=== PATIENT | female | born 1965 | race American Indian/Alaskan Native ===

== ENCOUNTER 2018-04-30 16:08 | Emergency (ER) | payer OTHER ==
[2018-04-30 16:09] VITALS: BMI 17.6
[2018-04-30 16:23] VITALS: TEMP 98.2
[2018-04-30] MEDS ORDERED: Oxycodone/Acetaminophen 5/325 mg Tab PO STA (17:10)
--- NOTE | 2018-04-30 17:21 | ED PDOC ---
Arrival/HPI - General Chief Complaint: Abnormal Skin Integrity Time Seen by Provider: 04/30/18 16:33 Historian: Patient - History of Present Illness Narrative History of Present Illness (Text): 04/30/18 17:10 53yo female with no pmhx who present with complaint of painful bartholin cyst x few days. States she have appointment iwth her [employer]LL LINE MECHANIC tomorrow for it, but decided to come to the ED today. Report multiple history of the cyst in the past. States the last time was 2years ago and her [employer]LL LINE MECHANIC drained it. Denies fever chills, nausea, any other complaint. Past Medical History - Provider Review Nursing Documentation Reviewed: Yes - Infectious Disease Hx of Infectious Diseases: None - Tetanus Immunization Tetanus Immunization: Up to Date - Reproductive Menopause: No Currently : No - Cardiac Hx Cardiac Disorders: No - Hematological/Oncological Hx Blood Disorders: No - Psychiatric Hx Depression: No Hx Emotional Abuse: No Hx Physical Abuse: No Hx Substance Use: No - Suicidal Assessment Feels Threatened In Home Enviroment: No Family/Social History - Physician Review Nursing Documentation Reviewed: Yes Family/Social History: Unknown Family HX Smoking Status: Unknown If Ever Smoked Hx Alcohol Use: Yes Frequency of alcohol use: Socially Hx Substance Use: No Hx Substance Use Treatment: No Allergies/Home Meds Allergies/Adverse Reactions: Allergies peaches Allergy (Intermediate, Uncoded 05/12/12 12:50) mouth itches Review of Systems - Physician Review All systems were reviewed & negative as marked: Yes - Review of Systems Constitutional: Normal Eyes: Normal ENT: Normal Respiratory: Normal Cardiovascular: Normal Gastrointestinal: Normal Genitourinary Female: Other (Bartholin cyst) Musculoskeletal: Normal Skin: Normal Neurological: Normal Endocrine: Normal Hemo/Lymphatic: Normal Psychiatric: Normal Physical Exam Vital Signs Reviewed: Yes Vital Signs Temp Pulse Resp BP Pulse Ox 04/30/18 16:17 98.2 F 96 H 20 149/97 H 99 Temperature: Afebrile Blood Pressure: Normal Pulse: Regular Respiratory Rate: Normal Appearance: Positive for: Well-Appearing, Non-Toxic, Comfortable Pain Distress: None Mental Status: Positive for: Alert and Oriented X 3 - Systems Exam Head: Present: Atraumatic, Normocephalic Pupils: Present: PERRL Extroacular Muscles: Present: EOMI Conjunctiva: Present: Normal Mouth: Present: Moist Mucous Membranes Neck: Present: Normal Range of Motion Respiratory/Chest: Present: Clear to Auscultation, Good Air Exchange. No: Respiratory Distress, Accessory Muscle Use Cardiovascular: Present: Regular Rate and Rhythm, Normal S1, S2. No: Murmurs Abdomen: No: Tenderness, Distention, Peritoneal Signs Genitourinary/Pelvic Exam: Present: Other (Approximately 3 x 3cm tender fluctuant bartholin cyst noted on left inner labialis) Back: Present: Normal Inspection Upper Extremity: Present: Normal Inspection. No: Cyanosis, Edema Lower Extremity: Present: Normal Inspection. No: Edema Neurological: Present: GCS=15, CN II-XII Intact, Speech Normal Skin: Present: Warm, Dry, Normal Color. No: Rashes Psychiatric: Present: Alert, Oriented x 3, Normal Insight, Normal Concentration Medical Decision Making ED Course and Treatment: 04/30/18 19:05 Pt presented to ED for stated history. She was made aware that we don't have a [employer]LL LINE MECHANIC in ED. I offered to I & D the bartholin cyst although im not a [employer] MECH[employer]IC. She requested for somebody else to do the I & D. She was seen in ED by Dr. Liriano who again explained that we don't have a [employer]LL LINE MECHANIC and that she can follow up with her TOLL LINE MECHANIC tomorrow, per her appointment. She agreed and was very pleasant. States she understand. She was given Toradol in ED. She declined Doxy in ED and Tramadol was given in ED. Disposition/Present on Arrival - Present on Arrival Any Indicators Present on Arrival: No History of DVT/PE: No History of Uncontrolled Diabetes: No Urinary Catheter: No History of Decub. Ulcer: No History Surgical Site Infection Following: None - Disposition Have Diagnosis and Disposition been Completed?: Yes Diagnosis: Bartholin cyst Disposition: HOME/ ROUTINE Disposition Time: 17:25 Patient Plan: Discharge Condition: STABLE Discharge Instructions (ExitCare): Bartholin's Gland Cyst Additional Instructions: follow up with your [employer]LL [employer] MECH[employer]IC Return to ED for any new symptoms Prescriptions: RX: Doxycycline Hyclate 100 mg PO BID #14 capsule RX: traMADol [Ultram] 50 mg PO Q6 #6 tab Referrals: Kailee Obregon MD [Staff Provider] - Follow up with primary Forms: [employer] (Bhutanese)
[2018-04-30 17:39] VITALS: BP 124/78; PULSE 76; RESP 18; O2SAT 98
== END 2018-04-30 17:39 | disposition home or self-care (01) ==
LOC: ED 16:08
DX: N75.0 Cyst of Bartholin's gland (principal)